=== PATIENT | male | born 1930 | race Caucasian/White ===

== ENCOUNTER 2016-09-20 13:10 | Emergency (ER) | payer MEDICARE, OTHER ==
[2016-09-20 13:16] VITALS: BP 115/70; PULSE 109; RESP 20; O2SAT 93
--- NOTE | 2016-09-20 15:09 | ED.REPORT ---
HPI-Extremity Problem Lower Date of Service Sep 20, 2016 ED Provider: Dr. Grimm 85 year old male with a history of dementia, hypertension and polio as a child presents to the ED via EMS from [facility] due to increased pain, erythema and swelling to the LLE. The leg has been swollen for a while, but has gotten much worse today. Pt denies abd pain, CP, SOB, fever, nausea and vomiting. TERRENCE Brady is in room to help with history. Nursing Notes Stated Complaint: L LEG PAIN Chief Complaint: General Complaint Nursing Notes Reviewed: Yes Allergies: Coded Allergies: No Known Allergies (Unverified Allergy, 08/21/11) Scheduled Sulfamethoxazole/Trimeth 800-160 mg (Bactrim DS) 1 Each Tablet 1 TABLET PO BID Scheduled PRN oxyCODONE-Acetaminophen 5-325 mg (oxyCODONE-Acetaminophen 5-325 mg) 1 Each Tablet 1 TAB PO Q4H PRN PRN For Pain General Time Seen by MD: 15:08 Chief Complaint Other (L leg swelling) Hx Obtained From: Other family..., EMS Arrived By: Ambulance Symptom Duration: Since onset (worse today) Location: : Leg left Quality: Painful Severity: Current: Moderate Associated with: Reports: Swelling, Denies: Fever Exacerbated by: Movement Past Medical History Past Medical History RA hypertension Prostate Dementia Polio as a child Reports: GERD Past Surgical History None Smoking History Unknown if Ever Smoker Social History Other Social History: Good social support, Lives in [facility] Review of Systems Basic Review of Systems Respiratory: No shortness of breath, No cough, No wheeze Cardiovascular: No chest pain, No dyspnea on exertion, No orthopnea, No parox noct dyspnea, No palpitations GI: No abdominal pain, No nausea, No vomiting Constitutional: Denies: Fever Musculoskeletal: Reports: Extremity pain, Extremity swelling Complete sys rev & neg: except as marked. Physical Exam Initial Vital Signs Vital Signs (First) Date Time Temp Pulse Resp B/P Pulse Ox O2 Delivery O2 Flow Rate FiO2 09/20/16 13:16 36.8 109 20 115/70 93 Initial VS: Reviewed Head / Eyes: Atraumatic, Normocephalic, PERRL ENT: Conjunctiva normal, No scleral icterus Neck: Full range of motion Respiratory: Breath sounds normal, Clear to auscultation, No respiratory distress Cardiovascular: Regular rate & rhythm, Heart sounds normal, Intact distal pulses Abdomen / GI: Soft, Non-tender (erythematous papular rash to lower abd) Skin: Warm, Dry Left Leg / Calf: Positive: Erythema present, Swelling present... (Profound LLE erythema below the knee without vesicles or pustules.), Tenderness present..., Warmth present General/Constitutional: Awake Alertness: Positive: Disoriented Behavior: Positive: Agitated Demented Interpretation & Diagnostics Lab Results Interpretation Test 09/20/16 13:45 Hold Purple Top Tube Received (Received) Hold Blue Top Tube Received (Received) Hold Red Top Tube Received (Received) Hold [place] Top Tube Received (Received) General Lab Results Interp 1: Labs reviewed Re-Eval/Medical Decision Re-Evaluation/Progress : Time of Eval: 16:20 Re-Evaluation/Progress Note: Discussed plan for discharge and follow up. All questions addressed. Counseled Regarding: Diagnosis, Lab results, Need for follow-up, When/why to return to ED Discharge & Departure Impression: Primary Impression: Cellulitis of left leg Disposition: Home Discharge Condition All VS Reviewed: Yes Patient Instructions: Cellulitis (ED) Additional Instructions: You can use the antibiotic Bactrim as directed to treat the infection in the leg. You can use the pain medications that you are prescribed for pain. Discuss DNR status with PCP. Limited interventions vs. comfort care. Referrals: Elizabeth Greenfield MD (PCP) Scribe Attestation Portions of this note were transcribed by Zari Castillo. I, (Dr. Grimm) personally performed the history, physical exam and medical decision-making; I reviewed and confirmed the accuracy of the information in the transcribed note. Signed by: Zari Castillo. 09/20/2016, 0281 copies to: Elizabeth Greenfield MD, Kirk H MD Sep 20, 2016 15:09 Zari Castillo Sep 20, 2016 15:20
[2016-09-20] MEDS ORDERED: Trimethoprim-Sulfa 160 mg-800 mg Tablet PO ONE (15:25)
[2016-09-20] MEDS ORDERED: HYDROmorphone 1 mg/mL Inj IVPUSH ONE (15:25)
[2016-09-20] MEDS ORDERED: OXYC1TAB24 PO (16:03)
[2016-09-20] MEDS ORDERED: SULF1TAB7 PO (16:03)
== END 2016-09-20 16:13 | disposition home or self-care (01) ==
LOC: SED 13:10
DX: L03.116 Cellulitis of left lower limb (principal); I10 Essential (primary) hypertension; F03.90 Unspecified dementia, unspecified severity, without behavioral disturbance, psychotic disturbance, mood disturbance, and anxiety; K21.9 Gastro-esophageal reflux disease without esophagitis; M06.9 Rheumatoid arthritis, unspecified
CPT/HCPCS: 96374; 99284; J1170